=== PATIENT | female | born 1990 | race Caucasian/White ===

== ENCOUNTER 2017-09-28 17:51 | Emergency (ER) | payer MEDICAID, OTHER ==
[~2017-09-28] VITALS: Ht 152.4 cm; Wt 63.0 kg
[~2017-09-28 17:51] MED LIST: NAPR-232 PO; NO HOME MEDS
[2017-09-28 18:37] LABS: BASOPHILS % (AUTO) 0.2 % (0-1); EOSINOPHILS # (AUTO) 0.1 X10'3 (0-0.9); EOSINOPHILS % (AUTO) 0.5 % (0-6); HEMATOCRIT 37.1 % (35.0-45.0); HEMOGLOBIN 12.9 g/dl (12.0-16.0); LYMPHOCYTES # (AUTO) 1.4 X10'3 (1.1-4.8); LYMPHOCYTES % (AUTO) 10.3 % (21-51); MEAN CORPUSCULAR HEMOGLOBIN 32.3 PG (27.0-31.0); MEAN CORPUSCULAR HGB CONC 34.9 % (33.0-36.5); MEAN CORPUSCULAR VOLUME 92.5 FL (78-98); MEAN PLATELET VOLUME 7.9 FL (7.4-10.4); MONOCYTES # (AUTO) 1.3 X10'3 (0-0.9); MONOCYTES % (AUTO) 9.8 % (2-12); NEUTROPHILS # (AUTO) 10.7 X10'3 (1.8-7.7); NEUTROPHILS % (AUTO) 79.2 % (42-75); PLATELET COUNT 336 X10'3 (140-440); RED BLOOD COUNT 4.01 X10'6 (4.20-5.60); RED CELL DISTRIBUTION WIDTH 12.6 % (11.5-14.5); WHITE BLOOD COUNT 13.5 X10'3 (4.5-11.0)
[2017-09-28 18:45] LABS: PROTHROMBIN TIME 10.1 SECONDS (9.0-12.0)
[2017-09-28 18:51] LABS: CLARITY,URINE SLIGHTLY CLOUDY (Clear); COLOR,URINE YELLOW (Yellow); GLUCOSE, URINE NEGATIVE (Neg); KETONES,URINE NEGATIVE (Neg); LEUKOCYTE ESTERASE ,URINE TRACE (Neg); NITRITES, URINE POSITIVE (Neg); OCCULT BLOOD,URINE SMALL (Neg); PROTEIN,URINE TRACE mg/dl (Neg)
[2017-09-28 18:52] LABS: ALANINE AMINOTRANSFERASE 209 U/L (12-78); ALBUMIN 2.9 G/DL (3.4-5.0); ALBUMIN/GLOBULIN RATIO 0.7 (1.1-1.5); ALKALINE PHOSPHATASE 289 IU/L (46-116); ANION GAP 10 (8-16); ASPARTATE AMINO TRANSFERASE 74 U/L (10-37); BILIRUBIN,TOTAL 0.9 MG/DL (0.1-1.0); BLOOD UREA NITROGEN 8 MG/DL (7-18); CALCIUM 8.6 MG/DL (8.5-10.1); CHLORIDE 98 MMOL/L (99-107); GLUCOSE 148 MG/DL (70-104); POTASSIUM 3.6 MMOL/L (3.5-5.1); SODIUM 135 MMOL/L (135-145); TOTAL CARBON DIOXIDE 26.7 MMOL/L (24-32); TOTAL PROTEIN 7.2 G/DL (6.4-8.2); eGFR 85 ML/MIN
[2017-09-28 18:52] LABS: UA COLLECTION TYPE CLN CATCH MIDSTREAM
[2017-09-28 19:05] LABS: URINE HCG NEGATIVE (NEG)
[2017-09-28 19:06] LABS: BACTERIA,URINE 3+ /HPF (Neg); MUCUS STRANDS NONE SEEN /LPF (Neg); SQUAMOUS EPITHELIAL CELL,UR FEW /LPF (FEW); WBC CLUMPS,URINE FEW /HPF (NEGATIVE)
[2017-09-28] MEDS ORDERED: acetaminophen 325mg tablet PO ONE (19:15)
[2017-09-28 20:16] LABS: TOTAL CELLS COUNTED 100
[2017-09-28 20:17] LABS: PLATELET ESTIMATE NORMAL
[2017-09-28] MEDS ORDERED: morphine 4 MG/ML inj SYRINge IV ONE (20:20)
[2017-09-28] MEDS ORDERED: CefTRIAXone 2gm/D5W 50ml 50 ML IV ONE (20:20)
[2017-09-28] MEDS ORDERED: normal saline 1000ML IV soln IVB ONE (20:20)
[2017-09-28] MEDS ORDERED: ondansetron/PF 4mg/2ml inj IV ONE (20:20)
[2017-09-28] MEDS ORDERED: ketorolac tromethamine 15mg/ml inj. IV ONE (20:20)
[2017-09-28 20:37] LABS: LIPASE 71 U/L (73-393); MAGNESIUM 1.6 MG/DL (1.5-2.4)
[2017-09-28 20:53] LABS: URINE AMPHETAMINE SCREEN POSITIVE (Neg); URINE BARBITUATE SCREEN NEGATIVE (Neg); URINE BENZODIAZEPINES SCREEN NEGATIVE (Neg); URINE CANNABINOID SCREEN NEGATIVE (Neg); URINE COCAINE SCREEN NEGATIVE (Neg); URINE METHADONE SCREEN NEGATIVE (Neg); URINE OPIATE SCREEN POSITIVE (Neg); URINE PHENCYCLIDINE SCREEN NEGATIVE (Neg)
[2017-09-28] MEDS ORDERED: CIPR-259 PO (21:59)
[2017-09-28] MEDS ORDERED: levoFLOXACIN 500mg tablet PO ONE (22:00)
[2017-09-28 22:26] VITALS: BP 99/60
== END 2017-09-28 22:27 | disposition home or self-care (01) ==
LOC: ER 17:51
DX: N12 Tubulo-interstitial nephritis, not specified as acute or chronic (principal); R79.89 Other specified abnormal findings of blood chemistry; Z88.2 Allergy status to sulfonamides
CPT/HCPCS: 36415; 74176; 80053; 80305; 81001; 81025; 83605; 83690; 83735; 85025; 85610; 87040; 87077; 87088; 87186; 96361; 96365; 96375; 99285; J0696; J1885; J2270; J2405; J7030

== ENCOUNTER 2017-12-07 16:32 | Emergency (ER) | payer MEDICAID, OTHER ==
[~2017-12-07] VITALS: Ht 152.4 cm; Wt 59.1 kg
[2017-12-07 16:39] VITALS: BP 128/85
[2017-12-07] MEDS ORDERED: DOXY100C43 PO (16:55)
[2017-12-07] MEDS ORDERED: CEPH-571 PO (16:55)
== END 2017-12-07 17:40 | disposition home or self-care (01) ==
LOC: ER 16:33
DX: S00.81XA Abrasion of other part of head, initial encounter (principal); L02.01 Cutaneous abscess of face; Z88.2 Allergy status to sulfonamides; Z79.899 Other long term (current) drug therapy; X58.XXXA Exposure to other specified factors, initial encounter; Y93.89 Activity, other specified; Y92.89 Other specified places as the place of occurrence of the external cause; Y99.8 Other external cause status
CPT/HCPCS: 99283

== ENCOUNTER 2023-06-28 20:24 | Emergency (ER) | payer MEDICAID ==
[~2023-06-28] VITALS: Ht 152.4 cm; Wt 77.3 kg
[~2023-06-28 20:24] MED LIST changes: +CEPH-571 PO
[2023-06-28 20:26] VITALS: BP 164/96; PULSE 95; RESP 16; TEMP 98; O2SAT 100
== END 2023-06-28 22:28 | disposition left against medical advice (07) ==
LOC: ER 20:25
DX: R51.9 Headache, unspecified (principal); Z53.21 Procedure and treatment not carried out due to patient leaving prior to being seen by health care provider
CPT/HCPCS: 99281

== ENCOUNTER 2023-07-01 14:07 | Emergency (ER) | payer BC, MEDICAID ==
[~2023-07-01] VITALS: Ht 165.1 cm; Wt 79.8 kg
[2023-07-01] MEDS ORDERED: IBUP-2766 PO (19:27)
[2023-07-01] MEDS ORDERED: DOXY-1 PO (19:27)
[2023-07-01] MEDS ORDERED: IBUP-1984 PO (19:27)
[2023-07-01] MEDS ORDERED: PRED20TA PO (19:27)
[2023-07-01 19:56] VITALS: BP 164/102; PULSE 92; RESP 16; TEMP 98; O2SAT 99
== END 2023-07-01 19:58 | disposition home or self-care (01) ==
LOC: ER 14:08
DX: G51.9 Disorder of facial nerve, unspecified (principal); Z87.448 Personal history of other diseases of urinary system; Z88.2 Allergy status to sulfonamides; Z79.899 Other long term (current) drug therapy; Z79.1 Long term (current) use of non-steroidal anti-inflammatories (NSAID); Z79.2 Long term (current) use of antibiotics
CPT/HCPCS: 99283

== ENCOUNTER → 2023-12-04 | Outpatient (CLI) | payer BC, MEDICAID | END | disposition home or self-care (01) | LOC: RAD 09:45 | PROVIDERS: ATTEND Family Medicine | DX: N93.9 Abnormal uterine and vaginal bleeding, unspecified (principal) | CPT/HCPCS: 76856; 93976 ==